=== PATIENT | male | born 1950 | race African-American/Black ===

== ENCOUNTER 2017-07-26 08:15 | Emergency (ER) | payer SELFPAY ==
[~2017-07-26] VITALS: Ht 177.8 cm; Wt 72.7 kg
[2017-07-26] MEDS ORDERED: BP MED (08:26)
[2017-07-26] MEDS ORDERED: RIVA10 PO (08:26)
[2017-07-26] MEDS ORDERED: LIDOCAINE HCL 5% TRANSDERMAL PATCH TD ONE (12:00)
[2017-07-26] MEDS ORDERED: TraMADol HCL 50 MG TABLET PO ONE (12:00)
[2017-07-26 13:08] VITALS: BP 159/92
== END 2017-07-26 13:35 | disposition home or self-care (01) ==
LOC: EMS 08:19
DX: M54.6 Pain in thoracic spine (principal); M54.5 Low back pain; R51 Headache; I10 Essential (primary) hypertension; F17.210 Nicotine dependence, cigarettes, uncomplicated; Z79.899 Other long term (current) drug therapy; V49.49XA Driver injured in collision with other motor vehicles in traffic accident, initial encounter; Y93.89 Activity, other specified; Y92.89 Other specified places as the place of occurrence of the external cause; Y99.8 Other external cause status
CPT/HCPCS: 70450; 99284